=== PATIENT | male | born 1945 | race Caucasian/White ===

== ENCOUNTER 2016-12-22 13:11 | Inpatient (IN) | payer MEDICARE ==
[~2016-12-22] VITALS: Ht 195.6 cm; Wt 82.3 kg
[~2016-12-22 13:11] MED LIST: AMLO5TAB4 PO; ASPI-496 PO; CALC0.5C2 PO; FOLI1TAB39 PO; FURO10VI37 PO; FURO40TA6 PO; LANT1000 PO; LEVO500T33 PO; LEVO50TA5 PO; LISI-170 PO; METO25TA35 PO; METO25TA91 PO; POLY17PO5 PO; POTA10TA90 PO; SENN1TAB67 PO; SENN8.6T78 PO; SIMV40TA3 PO; SLEEP AID; VIT1TABL73 PO; WARF7.5T6 PO; WARF7.5T6 PO-COUM
[2016-12-22] MEDS ORDERED: SODIUM CHLORIDE FLUSH 10ML SYR IVF ONE (13:30)
[2016-12-22] MEDS ORDERED: METOPROLOL 1 MG/ML, 5ML IVPush ONE (13:30)
[2016-12-22 14:15] LABS: ASPARTATE AMINO TRANSFERASE 25 U/L (15-37); BLOOD UREA NITROGEN 40 mg/dL (7-18)
[2016-12-22 14:32] LABS: IS PT STATUS REG ER OR PRE ER? YES
[2016-12-22] MEDS ORDERED: METOPROLOL 1 MG/ML, 5ML ONE (15:02)
[2016-12-22] MEDS ORDERED: PIPERACILLIN/TAZO/PMX 3.375GM 50 ML ONE (16:50)
[2016-12-22 16:59] LABS: IS PT STATUS REG ER OR PRE ER? YES
[2016-12-22] MEDS ORDERED: PIPERACILLIN/TAZO/PMX 3.375GM 50 ML IV SCH (17:00)
[2016-12-22] MEDS ORDERED: VANCOMYCIN PER PHARMACY MC PRN (17:00)
[2016-12-22] MEDS ORDERED: PHARMACY MAY ADJ FOR RENAL FX MC PRN (17:00)
[2016-12-22] MEDS ORDERED: PIPERACILLIN/TAZO/PMX 2.25GM 50 ML IVPB SCH (17:17)
[2016-12-22] MEDS ORDERED: ESOM20CA PO (17:22)
[2016-12-22] MEDS ORDERED: FLUT9.9S NS (17:22)
[2016-12-22] MEDS ORDERED: PHYTONADIONE 5 MG TABLET PO ONE (17:29)
[2016-12-22] MEDS ORDERED: SODIUM CHLORIDE 0.9%, 500ML IVBOLUS ONE (19:30)
[2016-12-22 20:46] VITALS: BP 101/60
[2016-12-22] MEDS ORDERED: PHARMACOKINETIC CONSULTATION MC ONE (21:30)
[2016-12-22] MEDS ORDERED: VANCOMYCIN 1,700 MG in SODIUM CHLORIDE 0.9% 250 ML IV ONE (21:30)
[2016-12-22] MEDS ORDERED: PHARMACOKINETIC MONITORING MC PRN (21:30)
[2016-12-22 22:39] LABS: IS PT STATUS REG ER OR PRE ER? NO
[2016-12-22] MEDS: SIMVASTATIN 40 MG TABLET PO SCH (23:11)
[2016-12-23 01:28] VITALS: BP 103/61
[2016-12-23] MEDS ORDERED: METOPROLOL 1 MG/ML, 5ML IVPush PRN (02:00)
[2016-12-23] MEDS: PIPERACILLIN/TAZO/PMX 2.25GM 50 ML IVPB SCH ×3 (04:51→21:38)
[2016-12-23 06:16] LABS: DIFF TOTAL CELLS COUNTED 100 CELL DIFF
[2016-12-23 06:19] LABS: VERIFY COUNTS? YES
[2016-12-23 06:22] LABS: BLOOD UREA NITROGEN 54 mg/dL (7-18)
[2016-12-23 07:25] VITALS: BP 106/62
[2016-12-23] MEDS: LEVOTHYROXINE 50 MCG TABLET PO SCH (07:41)
[2016-12-23] MEDS: METOPROLOL TARTRATE 25 MG TABLET PO SCH (07:42)
[2016-12-23] MEDS: FUROSEMIDE 40 MG TABLET PO SCH (09:59)
[2016-12-23] MEDS: SENNOSIDES 8.6 MG TABLET PO SCH (10:00)
[2016-12-23 14:09] VITALS: BP 105/62
[2016-12-23] MEDS ORDERED: LANTHANUM CARBONATE HOMEMEDPO SCH (16:00)
[2016-12-23 20:05] VITALS: BP 101/59
[2016-12-23] MEDS ORDERED: VANCOMYCIN PER PHARMACY MC PRN (21:30)
[2016-12-23] MEDS: SIMVASTATIN 40 MG TABLET PO SCH (21:38)
[2016-12-24 02:14] VITALS: BP 118/69
[2016-12-24] MEDS: PIPERACILLIN/TAZO/PMX 2.25GM 50 ML IVPB SCH ×2 (04:45→17:35)
[2016-12-24 06:28] LABS: BLOOD UREA NITROGEN 75 mg/dL (7-18); TOTAL IRON BINDING CAPACITY 119 mcg/dL (250-450)
[2016-12-24 06:31] LABS: DIFF TOTAL CELLS COUNTED 100 CELL DIFF
[2016-12-24 06:35] LABS: VERIFY COUNTS? YES
[2016-12-24 07:47] VITALS: BP 129/77
[2016-12-24] MEDS ORDERED: REGADENOSON 0.4 MG/5 ML SYRINGE ONE (08:17)
[2016-12-24] MEDS: SENNOSIDES 8.6 MG TABLET PO SCH (08:18)
[2016-12-24] MEDS: LEVOTHYROXINE 50 MCG TABLET PO SCH (08:18)
[2016-12-24] MEDS: METOPROLOL TARTRATE 25 MG TABLET PO SCH (08:18)
[2016-12-24] MEDS: FUROSEMIDE 40 MG TABLET PO SCH (09:00)
[2016-12-24] MEDS: LANTHANUM CARBONATE HOMEMEDPO SCH ×3 (10:28→16:00)
[2016-12-24] MEDS: WARFARIN 7.5 MG TABLET PO-COUM SCH (17:44)
[2016-12-24 19:10] VITALS: BP 121/62
[2016-12-24] MEDS: SIMVASTATIN 40 MG TABLET PO SCH (20:20)
[2016-12-25] MEDS: PIPERACILLIN/TAZO/PMX 2.25GM 50 ML IVPB SCH ×3 (01:33→20:23)
[2016-12-25 01:43] VITALS: BP 115/63
[2016-12-25 07:09] VITALS: BP 122/66
[2016-12-25] MEDS: LANTHANUM CARBONATE HOMEMEDPO SCH ×3 (08:27→18:49)
[2016-12-25] MEDS: FUROSEMIDE 40 MG TABLET PO SCH (08:27)
[2016-12-25] MEDS: SENNOSIDES 8.6 MG TABLET PO SCH (08:28)
[2016-12-25] MEDS: LEVOTHYROXINE 50 MCG TABLET PO SCH (08:28)
[2016-12-25] MEDS: METOPROLOL TARTRATE 25 MG TABLET PO SCH (08:28)
[2016-12-25 09:40] LABS: HEP B SURF. AB 21.4 mIU/mL (0.0-10.0)
[2016-12-25] MEDS ORDERED: MIDAZOLAM 1 MG/ML, 5ML ONE (14:01)
[2016-12-25] MEDS ORDERED: LIDOCAINE 2%, 20ML ONE (14:02)
[2016-12-25] MEDS ORDERED: HEPARIN 1,000 UNITS/ML, 10ML ONE (14:02)
[2016-12-25] MEDS ORDERED: FENTANYL PF 100 MCG/2ML ONE (14:02)
[2016-12-25] MEDS ORDERED: BIVALIRUDIN 250 MG ONE (14:02)
[2016-12-25] MEDS ORDERED: VERAPAMIL 2.5 MG/ML, 2ML ONE (14:02)
[2016-12-25] MEDS ORDERED: TICAGRELOR 90 MG TABLET ONE (14:02)
[2016-12-25] MEDS: WARFARIN 7.5 MG TABLET PO-COUM SCH (18:49)
[2016-12-25] MEDS: SIMVASTATIN 40 MG TABLET PO SCH (20:22)
[2016-12-25 20:30] VITALS: BP 112/66
[2016-12-26 02:00] VITALS: BP 109/36
[2016-12-26] MEDS: PIPERACILLIN/TAZO/PMX 2.25GM 50 ML IVPB SCH ×3 (04:00→21:01)
[2016-12-26 05:13] LABS: BLOOD UREA NITROGEN 38 mg/dL (7-18)
[2016-12-26] MEDS: LEVOTHYROXINE 50 MCG TABLET PO SCH (06:24)
[2016-12-26 07:10] VITALS: BP 177/78
[2016-12-26] MEDS: METOPROLOL TARTRATE 25 MG TABLET PO SCH (08:13)
[2016-12-26] MEDS: FUROSEMIDE 40 MG TABLET PO SCH (08:13)
[2016-12-26] MEDS: LANTHANUM CARBONATE HOMEMEDPO SCH ×3 (08:14→17:36)
[2016-12-26] MEDS: WARFARIN 7.5 MG TABLET PO-COUM SCH (08:14)
[2016-12-26] MEDS: SENNOSIDES 8.6 MG TABLET PO SCH (08:14)
[2016-12-26 20:59] VITALS: BP 127/82
[2016-12-26] MEDS: SIMVASTATIN 40 MG TABLET PO SCH (21:02)
[2016-12-27 00:50] VITALS: BP 109/71
[2016-12-27] MEDS: PIPERACILLIN/TAZO/PMX 2.25GM 50 ML IVPB SCH ×2 (04:11→13:59)
[2016-12-27] MEDS: LEVOTHYROXINE 50 MCG TABLET PO SCH (05:49)
[2016-12-27 07:25] VITALS: BP 87/49
[2016-12-27 07:38] VITALS: BP 105/71
[2016-12-27 07:46] VITALS: BP 94/59
[2016-12-27] MEDS: SENNOSIDES 8.6 MG TABLET PO SCH (07:46)
[2016-12-27] MEDS: LANTHANUM CARBONATE HOMEMEDPO SCH ×2 (07:47→13:59)
[2016-12-27] MEDS: WARFARIN 7.5 MG TABLET PO-COUM SCH (07:47)
[2016-12-27] MEDS: FUROSEMIDE 40 MG TABLET PO SCH (09:45)
[2016-12-27] MEDS: METOPROLOL TARTRATE 25 MG TABLET PO SCH (09:45)
[2016-12-27] MEDS ORDERED: AMOX1TAB64 PO (12:13)
[2016-12-27] MEDS ORDERED: FURO40TA6 PO (12:13)
[2016-12-27] MEDS ORDERED: METO25TA35 PO (12:13)
== END 2016-12-27 14:42 | disposition home or self-care (01) | DRG 286 ==
LOC: ED 14:22 → EDIP 14:53 → 5SO 20:47
PROVIDERS: ADMIT Family Medicine; ATTEND Family Medicine
PROC: 5A12012 Performance of Cardiac Output, Single, Manual (ICD-10-PCS; principal; 2016-12-22)
PROC: 5A1D60Z (ICD-10-PCS; 2016-12-22)
PROC: 4A023N7 Measurement of Cardiac Sampling and Pressure, Left Heart, Percutaneous Approach (ICD-10-PCS; 2016-12-22)
PROC: B2111ZZ Fluoroscopy of Multiple Coronary Arteries using Low Osmolar Contrast (ICD-10-PCS; 2016-12-22)
PROC: B2151ZZ Fluoroscopy of Left Heart using Low Osmolar Contrast (ICD-10-PCS; 2016-12-22)
DX: I95.3 Hypotension of hemodialysis (principal); A41.9 Sepsis, unspecified organism; N18.6 End stage renal disease; I46.9 Cardiac arrest, cause unspecified; I13.2 Hypertensive heart and chronic kidney disease with heart failure and with stage 5 chronic kidney disease, or end stage renal disease; D68.59 Other primary thrombophilia; E87.2 Acidosis; I47.2 Ventricular tachycardia; I48.92 Unspecified atrial flutter; N39.0 Urinary tract infection, site not specified; Q61.2 Polycystic kidney, adult type; J98.11 Atelectasis; I50.42 Chronic combined systolic (congestive) and diastolic (congestive) heart failure; I48.0 Paroxysmal atrial fibrillation; D63.1 Anemia in chronic kidney disease; D69.6 Thrombocytopenia, unspecified; E03.9 Hypothyroidism, unspecified; E78.5 Hyperlipidemia, unspecified; G47.33 Obstructive sleep apnea (adult) (pediatric); G89.29 Other chronic pain; M54.9 Dorsalgia, unspecified; I08.0 Rheumatic disorders of both mitral and aortic valves; I48.2 Chronic atrial fibrillation; I70.0 Atherosclerosis of aorta; B96.1 Klebsiella pneumoniae [K. pneumoniae] as the cause of diseases classified elsewhere; R31.0 Gross hematuria; H91.90 Unspecified hearing loss, unspecified ear; R55 Syncope and collapse; Z79.01 Long term (current) use of anticoagulants; Z80.9 Family history of malignant neoplasm, unspecified; Z82.71 Family history of polycystic kidney; Z86.73 Personal history of transient ischemic attack (TIA), and cerebral infarction without residual deficits; Z87.01 Personal history of pneumonia (recurrent); Z87.440 Personal history of urinary (tract) infections; Z87.442 Personal history of urinary calculi; Z87.891 Personal history of nicotine dependence; Z90.49 Acquired absence of other specified parts of digestive tract; Z99.2 Dependence on renal dialysis; Z79.82 Long term (current) use of aspirin; Z79.899 Other long term (current) drug therapy
CPT/HCPCS: 36415; 71010; 74176; 78452; 80048; 80053; 80069; 80202; 81001; 82306; 82728; 82962; 83540; 83550; 83605; 83735; 83880; 83970; 84100; 84439; 84443; 84484; 85025; 85610; 86704; 86706; 86850; 86900; 87040; 87077; 87086; 87186; 87324; 87340; 93005; 93017; 93306; 93458; 93880; 96361; 96365; 96375; C1894; J0583; J1644; J2250; J2543; J2785; J3010; J3370; J3490; A9502; C9898; J7040; J7050; Q9967

== ENCOUNTER 2016-12-31 16:26 | Emergency (ER) | payer MEDICARE ==
[~2016-12-31] VITALS: Ht 198.1 cm; Wt 84.0 kg
[~2016-12-31 16:26] MED LIST changes: +AMOX1TAB64 PO; +ESOM20CA PO; +FLUT9.9S NS
[2016-12-31] MEDS ORDERED: ASPIRIN 81 MG TABLET CHEW PO ONE (17:00)
[2016-12-31] MEDS ORDERED: SODIUM CHLORIDE FLUSH 10ML SYR IVF ONE (17:00)
[2016-12-31] MEDS ORDERED: ASPIRIN 81 MG TABLET CHEW ONE (17:15)
[2016-12-31 17:36] LABS: BLOOD UREA NITROGEN 23 mg/dL (7-18)
[2016-12-31 17:41] LABS: IS PT STATUS REG ER OR PRE ER? YES
[2016-12-31] MEDS ORDERED: METOPROLOL 1 MG/ML, 5ML IVPush ONE (18:00)
[2016-12-31] MEDS ORDERED: METOPROLOL 1 MG/ML, 5ML ONE (18:03)
[2016-12-31 19:22] VITALS: BP 118/67
== END 2016-12-31 19:36 | disposition home or self-care (01) ==
LOC: ED 19:30
DX: I48.2 Chronic atrial fibrillation (principal); Z79.01 Long term (current) use of anticoagulants; R23.0 Cyanosis
CPT/HCPCS: 36415; 71010; 80048; 82040; 83880; 84484; 85025; 93005; 96374; 99285